=== PATIENT | female | born 1965 | race Caucasian/White ===

== ENCOUNTER 2019-04-30 14:44 | Emergency (ER) | payer SELFPAY ==
--- NOTE | 2019-04-30 15:39 | RAD REPORT ---
EXAM DESCRIPTION: RAD - Forearm Right - 04/30/2019 3:12 pm CLINICAL HISTORY: Right arm pain status post fall FINDINGS: A mildly displaced distal radial fracture is present
--- NOTE | 2019-04-30 16:00 | ER ---
Nurse's Notes [facility] Name: Rosa Garcia Age: 53 yrs Sex: Female : 1965 Arrival Date: 04/30/2019 Time: 14:45 Bed 13 Private MD: Diagnosis: Unspecified fracture of right forearm Presentation: 04/30 14:45 Presenting complaint: Right wrist pain 10/10 after mechanical fall onto outstretched hb hand yesterday. Denies other injuries. Negative LOC. Transition of care: patient was not received from another setting of care. Onset of symptoms was April 29, 2019. Risk Assessment: Do you want to hurt yourself or someone else? Patient reports no desire to harm self or others. Care prior to arrival: Medication(s) given: Motrin, at 1000 today. 14:45 Method Of Arrival: Ambulatory hb 14:45 Acuity: HI 4 hb 15:00 Initial Sepsis Screen: Does the patient meet any 2 criteria? No. Patient's initial ls4 sepsis screen is negative. Does the patient have a suspected source of infection? No. Patient's initial sepsis screen is negative. Triage Assessment: 14:45 General: Behavior is calm, cooperative. ls4 14:45 General: Appears uncomfortable. Musculoskeletal: Circulation, motion, and sensation ls4 intact. Capillary refill < 3 seconds, Range of motion: intact in right wrist Swelling present in right hand and right wrist Tenderness present in right wrist. Injury Description: fall injury. 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 - Coronavirus screen:: The patient has NOT traveled to [place], [place], or [place] in the past 14 days. The patient has NOT had contact with known/suspected case of Coronavirus? Proceed with normal triage procedures. - Social history:: Smoking status: Patient reports the use of cigarette tobacco products, smokes one-half pack cigarettes per day. - Ebola Screening: : No symptoms or risks identified at this time. Screenin:51 Abuse screen: Denies threats or abuse. Denies injuries from another. Nutritional ls4 screening: No deficits noted. Tuberculosis screening: No symptoms or risk factors identified. Fall Risk None identified. Assessment: 15:00 General: Appears in no apparent distress. uncomfortable. ls4 15:00 Pain: Complains of pain in right wrist Pain currently is 10 out of 10 on a pain scale. ls4 Neuro: Oriented to person, place, time, situation, Drafter [employer]otive [employer] Layout are equal bilaterally Moves all extremities. Gait is steady, Speech is normal, Facial symmetry appears normal, Pupils are PERRLA, Respiratory: Airway is patent Respiratory effort is even, unlabored, Respiratory pattern is regular, Breath sounds are clear bilaterally. GI: No deficits noted. : No deficits noted. Derm: No deficits noted. Musculoskeletal: Circulation, motion, and sensation intact. Capillary refill < 3 seconds, Range of motion: intact in all extremities. 15:51 Reassessment: Patient appears in no apparent distress at this time. Patient and/or ls4 family updated on plan of care and expected duration. Pain level reassessed. Vital Signs: 14:47 BP 135 / 78; Pulse 96; Resp 16; Temp 97.8; Pulse Ox 98% on R/A; Weight 81.65 kg; Height hb 5 ft. 4 in. (162.56 cm); Pain 10/10; 14:47 Body Mass Index 30.90 (81.65 kg, 162.56 cm) hb ED Course: 14:45 Patient arrived in ED. as 14:47 Triage completed. hb 14:47 Arm band placed on. hb 14:54 Farhana Ambriz [facility]-C [facility]. kb 14:54 Raudel Iraheta MD is Attending Physician. kb 15:01 Lexus Gómez, MARCY is Primary Nurse. ls4 15:15 Forearm Right XRAY In Process Unspecified. EDMS 15:51 Patient has correct armband on for positive identification. Bed in low position. Call ls4 light in reach. Side rails up X 1. 15:51 No provider procedures requiring assistance completed. Patient did not have IV access ls4 during this emergency room visit. 16:08 Orthoglass splint: Sugar tong splint applied on right arm. Radial pulse present and jb1 within normal limits before and after application of splint. Capillary refill was less than three seconds before and after application of splint. Administered Medications: No medications were administered Outcome: 15:59 Discharge ordered by . jose 16:23 Discharged to home ambulatory, with family. ls4 16:23 Condition: stable 16:23 Discharge instructions given to patient, family, Instructed on discharge instructions, follow up and referral plans. medication usage, Demonstrated understanding of instructions, follow-up care, medications. 16:26 Patient left the ED. ls4 Signatures: Dispatcher [employer] EDMS Wil Everett jb Farhana Ambriz, DOCK HAND-C DOCK HAND-Ana Ziegler Heather, RN RN Lexus Gómez RN RN ls4
--- NOTE | 2019-04-30 16:01 | EDPHYS ---
Physician Documentation [facility] Name: Rosa Garcia Age: 53 yrs Sex: Female : 1965 Arrival Date: 04/30/2019 Time: 14:45 Bed 13 Private MD: ED Physician Raudel Iraheta HPI: 04/30 15:54 This 53 yrs old Female presents to ER via Ambulatory with complaints of Wrist kb Injury. 15:54 The patient or guardian reports decreased range of motion, injury, pain, swelling, kb tenderness. The complaints affect the right wrist diffusely. Context: The problem was sustained at home, resulted from a fall, on an outstretched hand. Onset: The symptoms/episode began/occurred yesterday. Modifying factors: The symptoms are alleviated by nothing, the symptoms are aggravated by movement. Associated signs and symptoms: The patient has no apparent associated signs or symptoms. The patient has not experienced similar symptoms in the past. The patient has not recently seen a physician. 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 - Coronavirus screen:: The patient has NOT traveled to [place], [place], or [place] in the past 14 days. The patient has NOT had contact with known/suspected case of Coronavirus? Proceed with normal triage procedures. - Social history:: Smoking status: Patient reports the use of cigarette tobacco products, smokes one-half pack cigarettes per day. - Ebola Screening: : No symptoms or risks identified at this time. ROS: 15:47 Constitutional: Negative for fever, chills, and weight loss, Neck: Negative for injury, kb pain, and swelling, Cardiovascular: Negative for chest pain, palpitations, and edema, Respiratory: Negative for shortness of breath, cough, wheezing, and pleuritic chest pain, Abdomen/GI: Negative for abdominal pain, nausea, vomiting, diarrhea, and constipation, Back: Negative for injury and pain, Skin: Negative for injury, rash, and discoloration, Neuro: Negative for headache, weakness, numbness, tingling, and seizure. 15:47 MS/extremity: Positive for injury or acute deformity, decreased range of motion, pain, swelling, tenderness, of the right wrist. Exam: 15:47 Constitutional: This is a well developed, well nourished patient who is awake, alert, kb and in no acute distress. Head/Face: Normocephalic, atraumatic. Neck: Trachea midline, no thyromegaly or masses palpated, and no cervical lymphadenopathy. Supple, full range of motion without nuchal rigidity, or vertebral point tenderness. No Meningismus. Chest/axilla: Normal chest wall appearance and motion. Nontender with no deformity. No lesions are appreciated. Cardiovascular: Regular rate and rhythm with a normal S1 and S2. No gallops, murmurs, or rubs. Normal PMI, no JVD. No pulse deficits. Respiratory: Lungs have equal breath sounds bilaterally, clear to auscultation and percussion. No rales, rhonchi or wheezes noted. No increased work of breathing, no retractions or nasal flaring. Abdomen/GI: Soft, non-tender, with normal bowel sounds. No distension or tympany. No guarding or rebound. No evidence of tenderness throughout. Back: No spinal tenderness. No costovertebral tenderness. Full range of motion. Skin: Warm, dry with normal turgor. Normal color with no rashes, no lesions, and no evidence of cellulitis. Neuro: Awake and alert, GCS 15, oriented to person, place, time, and situation. Cranial nerves II-XII grossly intact. Motor strength 5/5 in all extremities. Sensory grossly intact. Cerebellar exam normal. Normal gait. 15:47 Musculoskeletal/extremity: Extremities: grossly normal except: noted in the right wrist: decreased ROM, pain, swelling, tenderness, ROM: limited active range of motion due to pain, in the right wrist, Circulation is intact in all extremities. Sensation intact. Vital Signs: 14:47 BP 135 / 78; Pulse 96; Resp 16; Temp 97.8; Pulse Ox 98% on R/A; Weight 81.65 kg; Height hb 5 ft. 4 in. (162.56 cm); Pain 10/10; 14:47 Body Mass Index 30.90 (81.65 kg, 162.56 cm) hb MDM: 14:54 Patient medically screened. kb 15:54 Data reviewed: vital signs, nurses notes. Data interpreted: Pulse oximetry: on room air kb is 98 %. Interpretation: normal. 15:58 Counseling: I had a detailed discussion with the patient and/or guardian regarding: the kb historical points, exam findings, and any diagnostic results supporting the discharge/admit diagnosis, radiology results, the need for outpatient follow up, a orthopedic surgeon, to return to the emergency department if symptoms worsen or persist or if there are any questions or concerns that arise at home. 04/30 14:56 Order name: Forearm Right XRAY; Complete Time: 15:47 kb 04/30 15:34 Order name: Sugar Tong Forearm Splint; Complete Time: 15:55 kb 04/30 15:34 Order name: Sling; Complete Time: 15:55 kb Administered Medications: No medications were administered Disposition: 17:35 Co-signature as Attending Physician, Raudel Iraheta MD. rn Disposition: 04/30/19 15:59 Discharged to Home. Impression: Unspecified fracture of right forearm. - Condition is Stable. - Discharge Instructions: Forearm Fracture, [id number]. - Prescriptions for Tylenol- Codeine #3 300-30 mg Oral Tablet - take 1 tablet by ORAL route every 6 hours As needed; 15 tablet. - Medication Reconciliation Form, Thank You Letter, Antibiotic Education, Prescription Opioid Use form. - Follow up: Emergency Department; When: As needed; Reason: Worsening of condition. Follow up: Private Physician; When: 2 - 3 days; Reason: Recheck today's complaints, Continuance of care, Re-evaluation by your physician. Signatures: Dispatcher [employer] EDWY Farhana Ambriz, TENNIS CAMP INSTRUCTOR-C TENNIS CAMP INSTRUCTOR-Ckb Raudel Iraheta MD MD rn Baxter, Heather, RN RN hb Stewart, Lisa, RN RN ls4 Corrections: (The following items were deleted from the chart) 16:26 15:59 04/30/2019 15:59 Discharged to Home. Impression: Unspecified fracture of right ls4 forearm. Condition is Stable. Forms are Medication Reconciliation Form, Thank You Letter, Antibiotic Education, Prescription Opioid Use. Follow up: Emergency Department; When: As needed; Reason: Worsening of condition. Follow up: Private Physician; When: 2 - 3 days; Reason: Recheck today's complaints, Continuance of care, Re-evaluation by your physician. kb
[2019-04-30 16:38] VITALS: BP 135/78; TEMP 97.8; O2SAT 98
== END 2019-04-30 16:26 | disposition home or self-care (01) ==
LOC: ER 14:44
PROC: 2W3CX1Z Immobilization of Right Lower Arm using Splint (ICD-10-PCS; principal; 2019-04-30)
DX: S52.501A Unspecified fracture of the lower end of right radius, initial encounter for closed fracture (principal); W19.XXXA Unspecified fall, initial encounter; Y93.9 Activity, unspecified; Y92.009 Unspecified place in unspecified non-institutional (private) residence as the place of occurrence of the external cause; F17.210 Nicotine dependence, cigarettes, uncomplicated
CPT/HCPCS: 99283

== ENCOUNTER 2021-04-02 16:43 | Emergency (ER) | payer SELFPAY ==
--- NOTE | 2021-04-02 17:00 | ER ---
Nurse's Notes [facility] Name: Rosa Garcia Age: 55 yrs Sex: Female : 1965 Arrival Date: 04/02/2021 Time: 16:44 Bed Waiting Private MD: Diagnosis: Cellulitis and acute lymphangitis of other parts of limb Presentation: 04/02 16:49 Chief complaint: Patient states: Insect bite to L hand yesterday. Hand is red, swollen, ll1 and tender today. No fever. Coronavirus screen: Vaccine status: Patient reports receiving the 2nd dose of the covid vaccine. Client denies travel out of the [place] in the last 14 days. At this time, the client does not indicate any symptoms associated with coronavirus-19. Ebola Screen: Patient denies travel to an Ebola-affected area in the 21 days before illness onset. Initial Sepsis Screen: Does the patient meet any 2 criteria? No. Patient's initial sepsis screen is negative. Does the patient have a suspected source of infection? Yes: Skin breakdown/wound. Risk Assessment: Do you want to hurt yourself or someone else? Patient reports no desire to harm self or others. Onset of symptoms was April 01, 2021. 16:49 Method Of Arrival: Ambulatory ll1 16:49 Acuity: HI 4 ll1 Triage Assessment: 16:50 General: Appears uncomfortable, Behavior is calm, cooperative, appropriate for age. ll1 Pain: Complains of pain in L hand Quality of pain is described as aching. Derm: Wound noted left hand Wound is red, swollen, tender. Musculoskeletal: Circulation, motion, and sensation intact. Capillary refill < 3 seconds, Swelling present in left hand. Historical: - Allergies: 16:48 PENICILLINS; ll1 - PMHx: 16:48 None; ll1 - PSHx: 16:48 ankle SX; ll1 - Immunization history:: Client reports receiving the 2nd dose of the Covid vaccine. - Social history:: Smoking status: Patient denies any tobacco usage or history of. Smoking status: Reported history of juuling and/or vaping. Screenin:56 Abuse screen: Denies threats or abuse. Nutritional screening: No deficits noted. ll1 Tuberculosis screening: No symptoms or risk factors identified. Fall Risk Total [place] Fall Scale indicates No Risk (0-24 pts). Vital Signs: 16:49 BP 145 / 79; Pulse 87; Resp 16; Temp 97.1; Pulse Ox 97% ; Weight 95.25 kg; Height 5 ft. ll1 4 in. (162.56 cm); Pain 10/10; 16:49 Body Mass Index 36.05 (95.25 kg, 162.56 cm) ll1 ED Course: 16:44 Patient arrived in ED. am2 16:49 Arm band placed on. ll1 16:50 Triage completed. ll1 16:54 Jared Baker PA is PHCP. jr8 16:54 Raudel Iraheta MD is Attending Physician. jr8 16:56 Patient has correct armband on for positive identification. Bed in low position. ll1 Cardiac monitoring not applicable on this patient. 17:05 No provider procedures requiring assistance completed. Patient did not have IV access ll1 during this emergency room visit. Administered Medications: No medications were administered Outcome: 16:59 Discharge ordered by . jr8 17:05 Discharged to home ambulatory. ll1 17:05 Condition: stable 17:05 Discharge instructions given to patient, Instructed on discharge instructions, follow up and referral plans. medication usage, Demonstrated understanding of instructions, follow-up care, medications, Prescriptions given X 1. 17:05 Patient left the ED. ll1 Signatures: Jared Baker PA PA jr8 Daniella Flanagan am2 Vladimir Watters RN RN ll1
--- NOTE | 2021-04-02 17:00 | EDPHYS ---
Physician Documentation [facility] Name: Rosa Garcia Age: 55 yrs Sex: Female : 1965 Arrival Date: 04/02/2021 Time: 16:44 Bed Waiting Private MD: ED Physician Raudel Iraheta HPI: 04/02 17:04 This 55 yrs old Female presents to ER via Ambulatory with complaints of Hand Swelling. jr8 17:04 Onset: The symptoms/episode began/occurred gradually. Associated signs and symptoms: jr8 The patient has no apparent associated signs or symptoms. Severity of symptoms: At their worst the symptoms were mild, in the emergency department the symptoms are unchanged. The patient has not experienced similar symptoms in the past. The patient has not recently seen a physician. Patient stated that she noticed some mild erythema to the dorsum of the right hand that is now extended and caused swelling and pain to the dorsum of the hand. Denies fever or other symptoms at this time.. Historical: - Allergies: 16:48 PENICILLINS; ll1 - PMHx: 16:48 None; ll1 - PSHx: 16:48 ankle SX; ll1 - Immunization history:: Client reports receiving the 2nd dose of the Covid vaccine. - Social history:: Smoking status: Patient denies any tobacco usage or history of. Smoking status: Reported history of juuling and/or vaping. ROS: 17:04 Eyes: Negative for injury, pain, redness, and discharge, ENT: Negative for injury, jr8 pain, and discharge, Neck: Negative for injury, pain, and swelling, Cardiovascular: Negative for chest pain, palpitations, and edema, Respiratory: Negative for shortness of breath, cough, wheezing, and pleuritic chest pain, Abdomen/GI: Negative for abdominal pain, nausea, vomiting, diarrhea, and constipation, Back: Negative for injury and pain, Neuro: Negative for headache, weakness, numbness, tingling, and seizure. 17:04 MS/extremity: Positive for erythema, pain, swelling, tenderness, of the right hand. 17:04 Skin: Positive for erythema, of the right hand. Exam: 17:04 Constitutional: This is a well developed, well nourished patient who is awake, alert, jr8 and in no acute distress. Cardiovascular: Regular rate and rhythm with a normal S1 and S2. No gallops, murmurs, or rubs. Normal PMI, no JVD. No pulse deficits. Respiratory: Lungs have equal breath sounds bilaterally, clear to auscultation and percussion. No rales, rhonchi or wheezes noted. No increased work of breathing, no retractions or nasal flaring. Skin: Warm, dry with normal turgor. Normal color with no rashes, no lesions, and no evidence of cellulitis. Neuro: Awake and alert, GCS 15, oriented to person, place, time, and situation. Cranial nerves II-XII grossly intact. Motor strength 5/5 in all extremities. Sensory grossly intact. 17:04 Musculoskeletal/extremity: Extremities: grossly normal except: noted in the right hand: Patient has mild swelling to the dorsum right hand extending to the second third and fourth digits proximally. Mild erythema present. Tenderness to the dorsal region where the swelling is present. Patient has only mild pain with passive and active range of motion of her fingers. No other acute findings noted to the hand or remainder of extremity., Pulses: noted to be 2+ in the right radial artery and left radial artery, Sensation intact. Vital Signs: 16:49 BP 145 / 79; Pulse 87; Resp 16; Temp 97.1; Pulse Ox 97% ; Weight 95.25 kg; Height 5 ft. ll1 4 in. (162.56 cm); Pain 10/10; 16:49 Body Mass Index 36.05 (95.25 kg, 162.56 cm) ll1 MDM: 16:54 Data reviewed: vital signs, nurses notes, and as a result, I will discharge patient. jr8 Data interpreted: Pulse oximetry: on room air is 97 %. Interpretation: normal. Counseling: I had a detailed discussion with the patient and/or guardian regarding: the historical points, exam findings, and any diagnostic results supporting the discharge/admit diagnosis, the need for outpatient follow up, a family practitioner, to return to the emergency department if symptoms worsen or persist or if there are any questions or concerns that arise at home. 16:59 Patient medically screened. jr8 Administered Medications: No medications were administered Disposition: 17:11 Co-signature as Attending Physician, Raudel Iraheta MD I agree with the assessment and rn plan of care. Attestation: The patient's history, exam findings, diagnostics, and a summary of any interventions or procedures was reviewed in detail with Jared LU. Disposition Summary: 04/02/21 16:59 Discharge Ordered Location: Home jr Problem: new jr8 Symptoms: have improved jr8 Condition: Stable jr8 Diagnosis - Cellulitis and acute lymphangitis of other parts of limb jr8 Followup: jr8 - With: Private Physician - When: 5 - 6 days - Reason: Recheck today's complaints, Continuance of care, Re-evaluation by your physician Discharge Instructions: - Cellulitis, Adult jr8 - Discharge Summary Sheet ll1 Forms: - Medication Reconciliation Form jr8 - Thank You Letter jr8 - Antibiotic Education jr8 - Work release form ll1 - Prescription Opioid Use jr8 Prescriptions: - Bactrim DS 800-160 mg Oral Tablet - take 1 tablet by ORAL route every 12 hours for 10 days; 20 tablet; Refills: 0, jr8 Product Selection Permitted Signatures: Raudel Iraheta MD MD rn Roszak, Josh, PA PA jr8 Vladimir Watters RN RN 1
[2021-04-02 17:50] VITALS: BP 145/79; TEMP 97.1; O2SAT 97
== END 2021-04-02 17:05 | disposition home or self-care (01) ==
LOC: ER 16:43
DX: L03.113 Cellulitis of right upper limb (principal); L03.123 Acute lymphangitis of right upper limb; Z88.0 Allergy status to penicillin
CPT/HCPCS: 99282

== ENCOUNTER 2023-01-17 00:45 | Emergency (ER) | payer SELFPAY ==
--- NOTE | 2023-01-17 03:03 | ER ---
Nurse's Notes [facility] Name: Rosa Garcia Age: 57 yrs Sex: Female : 1965 Arrival Date: 01/17/2023 Time: 00:45 Bed 11 Private MD: Diagnosis: Displaced transverse fracture of shaft of left radius Presentation: 01/17 00:51 Chief complaint: EMS states: pt punched a wall a couple hours ago while intoxicated. In kd3 police custody and is now complaining of left wrist pain. Coronavirus screen: Vaccine status: Patient reports receiving the 2nd dose of the covid vaccine. Ebola Screen: No symptoms or risks identified at this time. Initial Sepsis Screen: Does the patient meet any 2 criteria? No. Patient's initial sepsis screen is negative. Does the patient have a suspected source of infection? No. Patient's initial sepsis screen is negative. Risk Assessment: Do you want to hurt yourself or someone else? Patient reports no desire to harm self or others. Onset of symptoms was January 17, 2023. 00:51 Method Of Arrival: EMS: [facility] kd3 00:51 Acuity: HI 4 kd3 Triage Assessment: 00:53 General: Appears in no apparent distress. Behavior is calm, cooperative. Pain: kd3 Complains of pain in dorsal aspect of left wrist and palmar aspect of left wrist. Historical: - Allergies: 00:53 PENICILLINS; kd3 - PSHx: 00:53 ankle SX; kd3 - Immunization history:: Adult Immunizations up to date. - Social history:: Smoking status: Reported history of juuling and/or vaping. - Family history:: not pertinent. - Hospitalizations: : No recent hospitalization is reported. Screenin:11 [facility] ED Fall Risk Assessment (Adult) History of falling in the last 3 months, rv including since admission No falls in past 3 months (0 pts) Confusion or Disorientation No (0 pts) Intoxicated or Sedated Yes (3 pts) Impaired Gait No (0 pts) Mobility Assist Device Used No (0 pt) Altered Elimination No (0 pt) Score/Fall Risk Level 3 or more points = High Risk Oriented to surroundings, Maintained a safe environment, Educated pt \T\ family on fall prevention, incl call for assistance when getting out of bed, Assessed \T\ reinforced patient's understanding of fall precautions, Provided non-skid footwear, Hourly rounding (assess needs \T\ fall precautionary measures) done, Used ambulatory aids as needed (educated on \T\ assisted with), Used gait belt as appropriate Implemented a Fall Risk Plan of Care, Apply high fall risk patient identification: yellow non skid footwear/ fall signage, Placed fall mat w/ non beveled edge next to bed, Activated bed/chair alarm, Remained w/in arm's length of patient and in sight while toileting, Offered frequent toileting (1:1 observation), Remained with patient while ambulating, Utilized family, sitter, or virtual train engineer as indicated. Abuse screen: Denies threats or abuse. Denies injuries from another. Nutritional screening: No deficits noted. Tuberculosis screening: No symptoms or risk factors identified. Assessment: 02:13 Reassessment: see triage notes. rv Vital Signs: 00:51 BP 101 / 67; Pulse 70; Resp 18; Temp 98.2(O); Pulse Ox 100% on R/A; Weight 90.72 kg; kd3 Height 5 ft. 4 in. ; 03:18 BP 110 / 76; Pulse 71; Resp 17; Temp 98; Pulse Ox 99% ; rv 00:51 Body Mass Index 34.33 (90.72 kg, 162.56 cm) kd3 ED Course: 00:45 Patient arrived in ED. rn 00:45 Raudel Iraheta MD is Attending Physician. rn 00:51 Katt Marin, MARCY is Primary Nurse. kd3 00:53 Triage completed. kd3 00:53 Arm band placed on right wrist. kd3 01:50 XRAY Hand LEFT 3 View In Process Unspecified. EDMS 01:51 XRAY Wrist LEFT 3 view In Process Unspecified. EDMS 02:11 Patient has correct armband on for positive identification. Client placed on continuous rv cardiac and pulse oximetry monitoring. NIBP monitoring applied. 02:11 No provider procedures requiring assistance completed. Patient did not have IV access rv during this emergency room visit. 03:02 Jeffery Yoder MD is Referral Physician. rn 03:18 Provided Education on: splint. rv Administered Medications: No medications were administered Medication: 02:11 VIS not applicable for this client. rv Outcome: 03:02 Discharge ordered by . rn 03:18 Discharged to Law Enforcement rv 03:18 Condition: good 03:18 Discharge instructions given to patient, Instructed on discharge instructions, follow up and referral plans. Demonstrated understanding of instructions, follow-up care, splint care, 03:18 Patient left the ED. rv Signatures: Dispatcher [employer] Raudel Vieira MD MD rn Vicente, Ronaldo, RN RN Katt Cohn RN RN kd3
--- NOTE | 2023-01-17 03:03 | EDPHYS ---
Physician Documentation [facility] Name: Rosa Garcia Age: 57 yrs Sex: Female : 1965 Arrival Date: 01/17/2023 Time: 00:45 Bed 11 Private MD: ED Physician Raudel Iraheta HPI: 01/17 00:47 This 57 yrs old Female presents to ER via Unassigned with complaints of hand/wrist rn injury. 00:47 The patient or guardian reports decreased range of motion, injury, pain. The complaints rn affect the left hand diffusely. Onset: The symptoms/episode began/occurred just prior to arrival. Modifying factors: The symptoms are alleviated by nothing, the symptoms are aggravated by. Severity of symptoms: At their worst the symptoms were mild, in the emergency department the symptoms are unchanged. The patient has not experienced similar symptoms in the past. Patient reports was upset and punched a wall with the left hand, pain to the proximal/dorsum of left hand/wrist. No other injuries. Patient was intoxicated at the time and is in police custody.. Historical: - Allergies: 00:53 PENICILLINS; kd3 - PSHx: 00:53 ankle SX; kd3 - Immunization history:: Adult Immunizations up to date. - Social history:: Smoking status: Reported history of juuling and/or vaping. - Family history:: not pertinent. - Hospitalizations: : No recent hospitalization is reported. ROS: 00:47 Constitutional: Negative for fever, chills, and weight loss, MS/Extremity: Positive for rn left hand/wrist injury and pain Exam: 00:47 Constitutional: This is a well developed, well nourished patient who is awake, alert, rn and in no acute distress. MS/ Extremity: Pulses equal, no cyanosis. Neurovascular intact. Pain and swelling to dorsum of left proximal hand. Mild tenderness along distal radius. No deformity of fingers. No proximal forearm or humeral tenderness or pain Vital Signs: 00:51 BP 101 / 67; Pulse 70; Resp 18; Temp 98.2(O); Pulse Ox 100% on R/A; Weight 90.72 kg; kd3 Height 5 ft. 4 in. ; 03:18 BP 110 / 76; Pulse 71; Resp 17; Temp 98; Pulse Ox 99% ; rv 00:51 Body Mass Index 34.33 (90.72 kg, 162.56 cm) kd3 Procedures: 03:01 Splinting: Splint applied to left arm using Orthoglass splint, applied by myself. tech. rn Examined by me, post splint application: neurovascular intact, 2+ distal pulses palpable, brisk capillary refill noted, Patient tolerated well. MDM: 00:45 Patient medically screened. rn 03:01 Differential diagnosis: closed fracture, contusion. Data reviewed: vital signs, nurses rn notes, radiologic studies, plain films, and as a result, I will discharge patient. Independent interpretation of the following test(s) in the Emergency Department X-Ray: My interpretation is X-ray left wrist images show mildly displaced distal radius fracture per my interpretation. Counseling: I had a detailed discussion with the patient and/or guardian regarding the historical points, exam findings, and any diagnostic results supporting the discharge/admit diagnosis, radiology results, the need for outpatient follow up, to return to the emergency department if symptoms worsen or persist or if there are any questions or concerns that arise at home. Special discussion: I discussed with the patient/guardian in detail that at this point there is no indication for admission to the hospital. It is understood, however, that if the symptoms persist or worsen the patient needs to return immediately for re-evaluation. Based on the history and exam findings, there is no indication for further emergent testing or inpatient evaluation. I discussed with the patient/guardian the need to see the orthopedic surgeon for further evaluation of the symptoms. 01/17 00:46 Order name: XRAY Hand LEFT 3 View rn 01/17 00:46 Order name: XRAY Wrist LEFT 3 view rn 01/17 02:30 Order name: Misc. Order: finger traps to gravity; Complete Time: 02:36 rn 01/17 02:30 Order name: Splint - Sugar Tong - Forearm; Complete Time: 02:36 rn Administered Medications: No medications were administered Disposition Summary: 01/17/23 03:02 Discharge Ordered Notes: Location: Home rn Problem: new rn Symptoms: have improved rn Condition: Stable rn Diagnosis - Displaced transverse fracture of shaft of left radius rn Followup: rn - With: Jeffery Yoder MD - When: 1 week - Reason: Recheck today's complaints, Re-evaluation by your physician Discharge Instructions: - Discharge Summary Sheet rn - Cast or Splint Care, Adult rn - Wrist Fracture Treated With Immobilization rn Forms: - Medication Reconciliation Form rn - Thank You Letter rn - Antibiotic attorney lawyer - Prescription Opioid Use rn - Patient Portal Instructions rn - Leadership Thank You Letter rn Signatures: Dispatcher [employer] Raudel Vieira MD MD rn Doucette, Kyli RN RN kd3
[2023-01-17 03:25] VITALS: BP 110/76; TEMP 98; O2SAT 99
--- NOTE | 2023-01-17 21:03 | RAD REPORT ---
EXAM DESCRIPTION: RAD - Wrist Left 3 View - 01/17/2023 1:48 am CLINICAL HISTORY: Punched wall, pain and swelling TECHNIQUE: Three views of the left hand, and left wrist are submitted. COMPARISON: None available for comparison FINDINGS: Bones: Fracture of the distal radius at the metadiaphysis. No significant angulation. No evidence of disruption of the distal radiocarpal joint space. Distal ulna is intact. Carpal bones are intact. Joints: Osteoarthritic changes. Deformity at the proximal interphalangeal joint of the fourth digit, likely chronic. . Soft tissues: No radiopaque foreign bodies. IMPRESSION: Fracture of the distal radius at the metadiaphysis. Electronically signed by: Hitesh Mathew MD 01/17/2023 2:25 AM CDT Due to temporary technical issues with the PACS/Fluency reporting system, reports are being signed by the in house radiologists without review as a courtesy to insure prompt reporting. The interpreting radiologist is fully responsible for the content of the report
--- NOTE | 2023-01-17 21:05 | RAD REPORT ---
EXAM DESCRIPTION: RAD - Hand Left 3 View - 01/17/2023 1:48 am CLINICAL HISTORY: Punched wall, pain and swelling TECHNIQUE: Three views of the left hand, and left wrist are submitted. COMPARISON: None available for comparison FINDINGS: Bones: Fracture of the distal radius at the metadiaphysis. No significant angulation. No evidence of disruption of the distal radiocarpal joint space. Distal ulna is intact. Carpal bones are intact. Joints: Osteoarthritic changes. Deformity at the proximal interphalangeal joint of the fourth digit, likely chronic. . Soft tissues: No radiopaque foreign bodies. IMPRESSION: Fracture of the distal radius at the metadiaphysis. Electronically signed by: Hitesh Mathew MD 01/17/2023 2:25 AM CDT Due to temporary technical issues with the PACS/Fluency reporting system, reports are being signed by the in house radiologists without review as a courtesy to insure prompt reporting. The interpreting radiologist is fully responsible for the content of the report
== END 2023-01-17 03:18 | disposition home or self-care (01) ==
LOC: ER 00:45
PROC: 2W3DX1Z Immobilization of Left Lower Arm using Splint (ICD-10-PCS; principal; 2023-01-17)
DX: S52.322A Displaced transverse fracture of shaft of left radius, initial encounter for closed fracture (principal)
CPT/HCPCS: 99284

== ENCOUNTER 2023-01-29 07:42 | Emergency (ER) | payer SELFPAY ==
--- NOTE | 2023-01-29 08:44 | ER ---
Nurse's Notes [facility] Name: Rosa Garcia Age: 57 yrs Sex: Female : 1965 Arrival Date: 01/29/2023 Time: 07:42 Bed DIS1 Private MD: Diagnosis: Influenza due to identified novel influenza A virus Presentation: 01/29 07:56 Chief complaint: Patient states: Pt reports fever, cough, body aches x3 days, reports as6 diarrhea this morning. Coronavirus screen: Vaccine status: Patient reports receiving the 2nd dose of the covid vaccine. Client denies travel out of the [place] in the last 14 days. Ebola Screen: Patient negative for fever greater than or equal to 101.5 degrees Fahrenheit, and additional compatible Ebola Virus Disease symptoms Patient denies exposure to infectious person. Patient denies travel to an Ebola-affected area in the 21 days before illness onset. Initial Sepsis Screen: Does the patient meet any 2 criteria? No. Patient's initial sepsis screen is negative. Does the patient have a suspected source of infection? No. Patient's initial sepsis screen is negative. Risk Assessment: Do you want to hurt yourself or someone else? Patient reports no desire to harm self or others. Onset of symptoms was January 26, 2023. 07:56 Method Of Arrival: Ambulatory as6 07:56 Acuity: HI 3 as6 Triage Assessment: 07:58 General: Appears in no apparent distress. ill, Behavior is calm, cooperative. Pain: as6 Complains of pain in head, chest, abdomen, right arm, left arm, right leg and left leg Pain does not radiate. Pain currently is 10 out of 10 on a pain scale. Quality of pain is described as aching. Historical: - Allergies: 07:58 PENICILLINS; as6 - Home Meds: 07:58 None [Active]; as6 - PMHx: 07:58 None; as6 - PSHx: 07:58 ankle SX; as6 - Immunization history:: Adult Immunizations up to date, Client reports receiving the 2nd dose of the Covid vaccine, Last tetanus immunization: unknown. - Social history:: Smoking status: Reported history of juuling and/or vaping. Screenin:55 [facility] ED Fall Risk Assessment (Adult) Score/Fall Risk Level 0 - 2 = Low Risk. Abuse iw screen: Denies threats or abuse. Denies injuries from another. Nutritional screening: No deficits noted. Tuberculosis screening: No symptoms or risk factors identified. Assessment: 08:40 General: Appears in no apparent distress. Behavior is calm, cooperative. General: iw Reports fever for feeling ill for fatigue for. Neuro: Level of Consciousness is awake, alert, obeys commands, Oriented to person, place, time, situation, Moves all extremities. Full function. Cardiovascular: Patient's skin is warm and dry. Respiratory: Respiratory effort is even, unlabored, Respiratory pattern is regular. Derm: Skin is intact, is healthy with good turgor. Musculoskeletal: Range of motion: intact in all extremities. Vital Signs: 07:56 BP 122 / 78; Pulse 91; Resp 20; Temp 99.2; Pulse Ox 99% ; Weight 77.11 kg; Height 5 ft. as6 2 in. ; Pain 10/10; 07:56 Body Mass Index 31.09 (77.11 kg, 157.48 cm) as6 07:56 Pain Scale: Adult as6 ED Course: 07:42 Patient arrived in ED. rg4 07:58 Triage completed. as6 07:58 Arm band placed on right wrist. as6 08:00 Refugio Clark RN is Primary Nurse. jl7 08:02 Jared Baker PA is PHCP. jr8 08:02 Joselito Sanderson MD is Attending Physician. jr8 08:40 Patient has correct armband on for positive identification. Provided Education on: . iw 08:55 No provider procedures requiring assistance completed. Patient did not have IV access iw during this emergency room visit. 08:56 Primary Nurse role handed off by Refugio Clark RN iw 08:56 Simi Bowden RN is Primary Nurse. iw Administered Medications: No medications were administered Medication: 08:40 VIS not applicable for this client. iw Outcome: 08:43 Discharge ordered by . jr8 08:55 Discharged to home ambulatory, iw 08:55 Condition: good 08:55 Discharge instructions given to patient, Instructed on discharge instructions, follow up and referral plans. medication usage, Demonstrated understanding of instructions, follow-up care, medications, Prescriptions given X 2, 08:56 Patient left the ED. iw Signatures: Simi Bowden RN RN iw Jared Baker PA PA jr8 Porsha Perez rg4 Refugio Clark, RN RN jl7 Sergey Brown, RN RN as6
--- NOTE | 2023-01-29 08:44 | EDPHYS ---
Physician Documentation [facility] Name: Rosa Garcia Age: 57 yrs Sex: Female : 1965 Arrival Date: 01/29/2023 Time: 07:42 Bed DIS1 Private MD: ED Physician Joselito Sanderson HPI: 01/29 08:05 This 57 yrs old Female presents to ER via Ambulatory with complaints of Flu Symptoms. jr8 08:05 The patient reports fever, not measured (subjective). Onset: The symptoms/episode jr8 began/occurred acutely, 3 day(s) ago. Modifying factors: there are no obvious modifying factors. Associated signs and symptoms: Pertinent positives: chills, cough, diarrhea. Severity of symptoms: At their worst the symptoms were moderate in the emergency department the symptoms are unchanged. The patient has not experienced similar symptoms in the past. The patient has not recently seen a physician. Historical: - Allergies: 07:58 PENICILLINS; as6 - Home Meds: 07:58 None [Active]; as6 - PMHx: 07:58 None; as6 - PSHx: 07:58 ankle SX; as6 - Immunization history:: Adult Immunizations up to date, Client reports receiving the 2nd dose of the Covid vaccine, Last tetanus immunization: unknown. - Social history:: Smoking status: Reported history of juuling and/or vaping. ROS: 08:05 Constitutional: Positive for body aches, chills, fatigue, fever, jr8 08:05 Respiratory: Positive for cough, with no reported sputum, 08:05 Abdomen/GI: Positive for diarrhea, abdominal cramps, Negative for nausea and vomiting, 08:05 All other systems are negative, Exam: 08:05 Constitutional: This is a well developed, well nourished patient who is awake, alert, jr8 and in no acute distress. Eyes: Pupils equal round and reactive to light, extra-ocular motions intact. Lids and lashes normal. Conjunctiva and sclera are non-icteric and not injected. Cornea within normal limits. Periorbital areas with no swelling, redness, or edema. Neck: Trachea midline no cervical lymphadenopathy. Supple, full range of motion without nuchal rigidity, or vertebral point tenderness. No Meningismus. Cardiovascular: Regular rate and rhythm with a normal S1 and S2. No gallops, murmurs, or rubs. Normal PMI, no JVD. No pulse deficits. Respiratory: Lungs have equal breath sounds bilaterally, clear to auscultation and percussion. No rales, rhonchi or wheezes noted. No increased work of breathing, no retractions or nasal flaring. Abdomen/GI: Soft, non-tender, with normal bowel sounds. No distension or tympany. No guarding or rebound. No evidence of tenderness throughout. Skin: Warm, dry with normal turgor. Normal color with no rashes, no lesions, and no evidence of cellulitis. MS/ Extremity: Pulses equal, no cyanosis. Neurovascular intact. Full, normal range of motion. Neuro: Awake and alert, GCS 15, oriented to person, place, time, and situation. Motor strength 5/5 in all extremities. Sensory grossly intact. Normal gait. Vital Signs: 07:56 BP 122 / 78; Pulse 91; Resp 20; Temp 99.2; Pulse Ox 99% ; Weight 77.11 kg; Height 5 ft. as6 2 in. ; Pain 10/10; 07:56 Body Mass Index 31.09 (77.11 kg, 157.48 cm) as6 07:56 Pain Scale: Adult as6 MDM: 08:02 Patient medically screened. jr8 08:05 Differential diagnosis: viral Infection, URI, pneumonia gastroenteritis. Consideration jr8 of Admission/Observation Escalation of care including admission/observation considered. I considered the following discharge prescriptions or medication management in the emergency department I discussed and recommended Over The Counter medications, Antibiotics: At this time antibiotics are not recommended. 08:42 Data reviewed: vital signs, nurses notes, lab test result(s), Flu: positive. jr8 Counseling: I had a detailed discussion with the patient and/or guardian regarding the historical points, exam findings, and any diagnostic results supporting the discharge/admit diagnosis, lab results, the need for outpatient follow up, a family practitioner, to return to the emergency department if symptoms worsen or persist or if there are any questions or concerns that arise at home. ED course: Patient hemodynamically stable, afebrile, and doing well overall. Discussed lab results with her and that she is flu positive. We will start her on Tamiflu and cough medicine to help alleviate symptoms. Needs to continue to alternate Tylenol and Motrin for fevers and to continue to push fluids aggressively for the next few days. If she were to have shortness of breath or worsening condition to come back to the emergency room for further evaluation. The chest x-ray was canceled as her breath sounds are clear bilaterally and have normal oxygen saturation and she is with no shortness of breath at this time. Patient agreed and wanted it canceled as well and would come back if she were to have worsening of symptoms.. 01/29 08:02 Order name: SARS RAPID; Complete Time: 08:55 jl7 01/29 08:02 Order name: Flu; Complete Time: 08:38 jl7 Administered Medications: No medications were administered Disposition Summary: 01/29/23 08:43 Discharge Ordered Notes: Location: Home jr8 Problem: new jr8 Symptoms: have improved jr8 Condition: Stable jr8 Diagnosis - Influenza due to identified novel influenza A virus jr8 Followup: jr8 - With: Private Physician - When: 1 week - Reason: Recheck today's complaints, Continuance of care, Re-evaluation by your physician Discharge Instructions: - Discharge Summary Sheet jr8 - Influenza, Adult, [id number] jr8 Forms: - Work release form jr8 - Medication Reconciliation Form jr8 - Thank You Letter jr8 - Antibiotic Education jr8 - Prescription Opioid Use jr8 - Patient Portal Instructions jr8 - Leadership Thank You Letter jr8 Prescriptions: - promethazine-DM 6.25-15 mg/5 mL Oral syrup - administer 5 milliliter ORAL route every 4 to 6 hours as needed for cough; jr8 DNExceed 4 doses/24h; 120 milliliter; Refills: 0, Product Selection Permitted - Tamiflu 75 mg Oral capsule - take 1 tablet ORAL route every 12 hours for 5 days; 10 tablet; Refills: 0, jr8 Product Selection Permitted Signatures: Dispatcher [employer] EDMS Jared Baker PA PA jr8 Sergey Brown RN RN as6 Corrections: (The following items were deleted from the chart) 08:51 08:03 Chest Pa And Lat (2 Views)+[id number] ordered. EDWV EDMS
[2023-01-29 08:51] LABS: SARS-CoV-2 Antigen Rapid Res Negative (Negative)
[2023-01-29 09:07] VITALS: BP 122/78; TEMP 99.2; O2SAT 99
== END 2023-01-29 08:56 | disposition home or self-care (01) ==
LOC: ER 07:42
DX: J10.1 Influenza due to other identified influenza virus with other respiratory manifestations (principal); Z11.52 Encounter for screening for COVID-19
CPT/HCPCS: 36415; 87804; 87811; 99283